=== PATIENT | female | born 1955 | race Caucasian/White ===

== ENCOUNTER → 2016-06-08 | Day surgery (SDC) | payer MEDICARE ==
[~2016-06-08] MED LIST: ALFU1TAB10 PO; ASCO500C PO; ASPI325T PO; B-COTAB35 PO; BACL10TA PO; BENZ100 PO; BUSP10 PO; CALCTAB80 PO; CARB200 PO; DIOV80TA4 PO; DIPH25 PO; DOCU1CAP PO; DOCU1CAP39 PO; FENO160T2 PO; FLUC100T41 PO; GLIP5 PO; HYDR-3133 PO; LANTUS2P SC; LORA1TAB PO; MAGN400C2 PO; MECAP PO; METO10TA PO; MUCI600T PO; NEBI5 PO; NOVOINJ3 SQ; NOVOLOGP2 SQ; OMEG100010 PO; OMEP20TA PO; OXYC1TAB PO; PAXI40TA PO; POLY119S PO; PRED5TAB PO; PROPOFOL 200 MG/20 ML AMP IV ONE; ROSU40 PO; SODIUM CHLORIDE 0.9% INJ 10 ML ONE; TAB-TAB PO; TRAZ100 PO; TRIAMCINOLONE ACETONIDE 40 MG/ML VIAL ONE; VENTAER INH
== END | disposition home or self-care (01) ==
LOC: ESDC 06:22
PROVIDERS: ATTEND Anesthesiology Pain Medicine
DX: M96.1 Postlaminectomy syndrome, not elsewhere classified (principal); E11.9 Type 2 diabetes mellitus without complications; Z79.4 Long term (current) use of insulin
CPT/HCPCS: 62323; 82948; J3301

== ENCOUNTER → 2016-11-13 | Day surgery (SDC) | payer MEDICARE ==
[~2016-11-13] MED LIST changes: +ALFU10TA2 PO; -ALFU1TAB10 PO; -ASCO500C PO; +ASCO500T PO; -B-COTAB35 PO; +BENA25CA4 PO; +BUME1TAB PO; -BUSP10 PO; +BUSP10TA PO; +BYST5TAB2 PO; +CALC500T43 PO; -CALCTAB80 PO; -CARB200 PO; +CLOTR1%T TOPICAL; +COLA100C PO; +CREON24 PO; +DIFL100T PO; +DIOV160T6 PO; -DIOV80TA4 PO; -DIPH25 PO; +DIPH25CA PO; -DOCU1CAP PO; -DOCU1CAP39 PO; +DOCU250C PO; +DOXY1CAP91 PO; +FENO160T PO; -FENO160T2 PO; +FISH100020 PO; -FLUC100T41 PO; -GLIP5 PO; +GLIP5TAB8 PO; +GNPTAB PO; +GUAI600T11 PO; +L-ME1CAP2 PO; -LANTUS2P SC; +LANTUS2P SQ; +LIDOCAINE HCL 1% PF 30 ML VIAL EPIDURAL ONE; -LORA1TAB PO; +LORA1TAB12 PO; -MAGN400C2 PO; +MAGN400T2 PO; +METF500T PO; +MIRA3350 PO; +MUCI30TA2 PO; -MUCI600T PO; +MULTTAB67 PO; -NEBI5 PO; -NOVOLOGP2 SQ; -OMEG100010 PO; +OMEP20CA2 PO; -OMEP20TA PO; +OXYC-396 PO; +OXYC-428 PO; +OXYC1CAP PO; -OXYC1TAB PO; -PAXI40TA PO; +PAXI40TA8 PO; -POLY119S PO; +POTA10CA PO; +PROM12.54 PO; +SERT-129 PO; +SODIUM CHLORIDE 0.9% 10 ML VIAL ONE; -SODIUM CHLORIDE 0.9% INJ 10 ML ONE; -TAB-TAB PO; +TEGR200T PO; -TRAZ100 PO; +TRAZ100T6 PO; +TRIAMCINOLONE ACETONIDE 40 MG/ML VIAL NERV BLOCK ONE; -TRIAMCINOLONE ACETONIDE 40 MG/ML VIAL ONE
--- NOTE | 2016-11-14 23:10 | M6 ---
cc: DAKOTAH FELIZ M.D. DATE: 11/13/2016 DATE OF : 1955 PROCEDURE Fluoroscopically guided right L4-5 transforaminal epidural steroid injection. History and physical was completed and signed. Consent was signed. Procedure site was marked. Medications were listed and reconciled. Pain score was recorded. Allergies were noted. Time out was taken. Fluoroscopy time was recorded where applicable. Sedation was administered or directed by Dr. Feliz. The patient was given oxygen. The patient was monitored by a registered nurse. Total procedure time was greater than 15 minutes. PROCEDURE NOTE: An IV was started, blood pressure cuff, pulse oximeter and EKG were applied. The patient was placed in the prone position on a Jevon table, sedated with small amounts of Versed and propofol titrated to effect. Vital signs were monitored and remained stable throughout the procedure. The patient remained responsive throughout the procedure. The lumbar area was scrubbed with antimicrobial solution, prepped with 10% Betadine solution, and draped with sterile drapes. Fluoroscopy was used in both the AP and lateral projections to clearly visualize the right L4-L5 neural foramen. Then separate sterile 22 gauge, 3-1/2 inch Chiba needles were advanced under fluoroscopic guidance into the dorsal-most aspect of each foramen. There was negative aspiration for blood or CSF. There were no reported paresthesias by the patient. There was no washout of 2 mL of Omnipaque. Then after waiting approximately 60 seconds, the patient was slowly given 3 mL of 1% Xylocaine, 3 mL of normal saline and 40 milligrams of Kenalog at each location. Following this, the patient was taken to the recovery room with stable vital signs, neurologically intact. W. MD HENRIK Little/CURLY /9:12 AM /10:57 PM
== END | disposition home or self-care (01) ==
LOC: PHSDC 07:04
PROVIDERS: ATTEND Pain Medicine Interventional Pain Medicine
DX: M54.5 Low back pain (principal); M79.661 Pain in right lower leg
CPT/HCPCS: 64483; 99152; J3301

== ENCOUNTER → 2016-11-21 | Day surgery (SDC) | payer MEDICARE ==
[~2016-11-21] MED LIST changes: -BACL10TA PO; +BUPIVACAINE HCL PF 0.75% 30 ML VIAL ONE; -BUSP10TA PO; -FENO160T PO; -GLIP5TAB8 PO; -GUAI600T11 PO; -LIDOCAINE HCL 1% PF 30 ML VIAL EPIDURAL ONE; -LORA1TAB12 PO; -MECAP PO; -OXYC-428 PO; -PAXI40TA8 PO; -PRED5TAB PO; -SODIUM CHLORIDE 0.9% 10 ML VIAL ONE; +TRIAMCINOLONE ACETONIDE 40 MG/ML VIAL I-ARTICULR ONE; -TRIAMCINOLONE ACETONIDE 40 MG/ML VIAL NERV BLOCK ONE
--- NOTE | 2016-11-24 16:06 | M6 ---
cc: DAKOTAH FELIZ M.D. DATE: 11/21/2016. DATE OF : 1955. PROCEDURE PERFORMED: Fluoroscopically guided injection bilateral lumbar facet joints (bilateral L3-4, L4-5 and L5-S1 facet joints). DESCRIPTION OF THE PROCEDURE IN DETAIL: History and physical was completed and signed. Consent was signed. Procedure site was marked. Medications were listed and reconciled. Pain score was recorded. Allergies were noted. Time out was taken. Fluoroscopy time was recorded where applicable. Sedation was administered or directed by Dr. Feliz. The patient was given oxygen. The patient was monitored by a registered nurse. Total procedure time was greater than 15 minutes. IV was started, blood pressure cuff, pulse oximeter and EKG were applied. The patient was placed in the prone position on a Jevon table and sedated with small amounts of propofol titrated to effect. Vital signs were monitored and remained stable throughout the procedure. The lumbar area was prepped with alcohol and 10% Betadine solution and draped with sterile drapes. Fluoroscopy was used in a Wenceslao dog view to clearly visualize the bilateral lumbar facet joints at L3-4, L4-5 and L5-S1. Separate sterile 3-1/2-inch 25-gauge spinal needles were advanced into these joints under fluoroscopic guidance. There was negative aspiration for blood or any other type of fluid and at each location, the patient was given 1 mL of Marcaine 0.75% which contained 10 mg of Kenalog. Following the procedure, the patient was taken to the recovery room with stable vital signs neurologically intact. She will be evaluated immediately and with followup to determine if she has a subjective decrease her usual pain and a corresponding objective increase her functional capabilities. WMD HENRIK Cunningham/MELLY /8:30 AM /4:03 PM
== END | disposition home or self-care (01) ==
LOC: PHSDC 06:35
PROVIDERS: ATTEND Pain Medicine Interventional Pain Medicine
DX: M54.5 Low back pain (principal); M79.661 Pain in right lower leg
CPT/HCPCS: 64493; 64494; 64495; 99152; J3301

== ENCOUNTER → 2016-11-28 | Day surgery (SDC) | payer MEDICARE ==
[~2016-11-28] MED LIST changes: +BUPIVACAINE HCL PF 0.5% 30 ML VIAL ONE; -BUPIVACAINE HCL PF 0.75% 30 ML VIAL ONE; +IBUP-232 PO; +METF500T4 PO; +VALS1TAB64 PO; +methylPREDNISolone ACETATE 40 MG/ML VIAL I-ARTICULR ONE
--- NOTE | 2016-11-30 08:05 | M6 ---
cc: DAKOTAH FELIZ M.D. DATE: 11/28/2016 1955 PROCEDURE Fluoroscopically guided injection bilateral sacroiliac joints. History and physical was completed and signed. Consent was signed. Procedure site was marked. Medications were listed and reconciled. Pain score was recorded. Allergies were noted. Time out was taken. Fluoroscopy time was recorded where applicable. Sedation was administered or directed by Dr. Feliz. The patient was given oxygen. The patient was monitored by a registered nurse. Total procedure time was greater than 15 minutes. IV was started, blood pressure cuff, pulse oximeter and EKG were applied. The patient was placed in the prone position on a Jevon table, sedated with small amounts of propofol titrated to effect. Vital signs were monitored and remained stable throughout the procedure. The lumbar area was prepped with alcohol and 10% Betadine solution and draped with sterile drapes. Fluoroscopy was used shooting from medial to lateral to clearly visualize the posterior joint line of the bilateral sacroiliac joints. Separate sterile 5-inch 22-gauge spinal needles were advanced using fluoroscopic guidance into each sacroiliac joint. There was negative aspiration for blood or any other type of fluid and the patient was given 2 mL of 0.5% Marcaine, 20 mg of Depo-Medrol, 20 mg of Kenalog into each joint. Following this the patient was taken to the recovery room with stable vital signs, neurologically intact. She will be evaluated immediately and with followup to determine if she has a subjective decrease in her usual pain and a corresponding objective increase in her functional capabilities. W. MD HENRIK Little/VANESSA /8:57 AM /7:54 AM
== END | disposition home or self-care (01) ==
LOC: PHSDC 06:34
PROVIDERS: ATTEND Pain Medicine Interventional Pain Medicine
DX: M51.37 Other intervertebral disc degeneration, lumbosacral region (principal); M53.3 Sacrococcygeal disorders, not elsewhere classified
CPT/HCPCS: 99152; G0260; J1030; J3301; 27096

== ENCOUNTER → 2016-12-07 | Day surgery (SDC) | payer MEDICARE ==
--- NOTE | 2016-12-11 14:50 | M6 ---
cc: LIU RIVAS,TERESITA PUGH M.D., M.D. DATE: 12/07/2016 DATE OF : 1955 PROCEDURE Fluoroscopically guided injection bilateral lumbar facet joints (bilateral L3-4, L4-5 and L5-S1). PREPROCEDURE NOTE Ms. Bailey is status post lumbar surgery with chronic low back pain and lower extremity radicular symptoms. She is a diabetic and has trouble controlling her blood sugar so we are looking for ways to control her back pain without the use of steroids. On 11/21/2016 we injected her bilateral lumbar facet joints with local anesthetic and a small amount of steroid. The patient reported five days of being pain-free regarding her back pain. So today we are simply repeating that procedure and if on a second occasion the patient obtains excellent relief of her usual back pain then there are long-term treatment options such as neurolytic procedures which could provide her relief without the use of steroids. PROCEDURE NOTE History and physical was completed and signed. Consent was signed. Procedure site was marked. Medications were listed and reconciled. Pain score was recorded. Allergies were noted. Timeout was taken. Fluoroscopy time was recorded where applicable. Sedation was administered or directed by Dr. Feliz. The patient was given oxygen. The patient was monitored by a registered nurse. Total procedure time was greater than 15 minutes. An IV was started, blood pressure cuff, pulse oximeter and EKG were applied. The patient was placed in the prone position on a Jevon table, sedated with small amounts of propofol titrated to effect. Vital signs were monitored and remained stable throughout the procedure. The lumbar and sacral area was prepped with alcohol and 10% Betadine solution, draped with sterile drapes. Fluoroscopy was used shooting from medial to lateral to clearly visualize the posterior joint line of the bilateral sacroiliac joints. Separate sterile 5-inch, 22-gauge spinal needles were advanced into each joint under fluoroscopic guidance. There was negative aspiration for blood or any other type of fluid and at each location the patient was given 2 mL of 0.5% Marcaine, 20 mg of Depo-Medrol, 20 mg of Kenalog. Following the procedure the patient was taken to the recovery room with stable vital signs, neurologically intact. W. MD ERIC Little /8:46 AM /2:40 PM
== END | disposition home or self-care (01) ==
LOC: PHSDC 06:47
PROVIDERS: ATTEND Pain Medicine Interventional Pain Medicine
DX: M54.5 Low back pain (principal); M79.661 Pain in right lower leg
CPT/HCPCS: 99152; G0260; J1030; J3301; 27096

== ENCOUNTER → 2017-01-02 | Day surgery (SDC) | payer MEDICARE ==
[~2017-01-02] MED LIST changes: -BENA25CA4 PO; -BUPIVACAINE HCL PF 0.5% 30 ML VIAL ONE; -DIFL100T PO; -DOXY1CAP91 PO; +SODIUM CHLORIDE 0.9% 10 ML VIAL ONE; -TRIAMCINOLONE ACETONIDE 40 MG/ML VIAL I-ARTICULR ONE; -methylPREDNISolone ACETATE 40 MG/ML VIAL I-ARTICULR ONE
--- NOTE | 2017-01-04 09:27 | M6 ---
cc: DAKOTAH FELIZ M.D. DATE: 01/02/2017 DATE OF : 1955 PROCEDURE Fluoroscopically guided injection neurolytic substance bilateral sacroiliac joints (3% phenol). History and physical was completed and signed. Consent was signed. Procedure site was marked. Medications were listed and reconciled. Pain score was recorded. Allergies were noted. Time out was taken. Fluoroscopy time was recorded where applicable. Sedation was administered or directed by Dr. Feliz. The patient was given oxygen. The patient was monitored by a registered nurse. Total procedure time was greater than 15 minutes. IV was started, blood pressure cuff, pulse oximeter and EKG were applied. The patient was placed in the prone position on a Jevon table sedated with small amounts of propofol titrated to effect. Vital signs were monitored and remained stable throughout the procedure log sacral area was prepped with alcohol and 10% Betadine solution and draped with sterile drapes. Fluoroscopy was used shooting from medial to lateral to clearly visualize the posterior joint line of the bilateral sacroiliac joint. Separate sterile 5-inch 22-gauge spinal needles were advanced into these joints under fluoroscopic guidance. There was negative aspiration for blood or any other type of fluid at each location the patient was given 1/2 mL of 3% phenol. Following this the patient was taken to the recovery room with stable vital signs neurologically intact. She will be evaluated immediately and with followup to determine if she has a subjective decrease in the usual pain and a corresponding objective increase her functional capabilities. W. MD HENRIK Little/leigh /9:56 AM /9:18 AM
== END | disposition home or self-care (01) ==
LOC: PHSDC 07:52
PROVIDERS: ATTEND Pain Medicine Interventional Pain Medicine
DX: G89.29 Other chronic pain (principal); M54.5 Low back pain
CPT/HCPCS: 64640; 99152

== ENCOUNTER → 2017-01-09 | Day surgery (SDC) | payer MEDICARE ==
[~2017-01-09] MED LIST changes: -CLOTR1%T TOPICAL; -DIOV160T6 PO; -METF500T PO
--- NOTE | 2017-01-09 12:18 | M6 ---
cc: Brooks FELIZ DATE 01/09/2017 DATE OF 1955 PROCEDURE Fluoroscopically guided injection neurolytic substance bilateral sacroiliac joints (3% phenol). PROCEDURE NOTE History and physical was completed and signed. Consent was signed. Procedure site was marked. Medications were listed and reconciled. Pain score was recorded. Allergies were noted. Time out was taken. Fluoroscopy time was recorded where applicable. Sedation was administered or directed by Dr. Feliz. The patient was given oxygen. The patient was monitored by a registered nurse. Total procedure time was greater than 15 minutes. IV was started, blood pressure cuff, pulse oximeter and EKG were applied. The patient was placed in the prone position on a Jevon table, sedated with small amounts of propofol titrated to effect. Vital signs were monitored and remained stable throughout the procedure. Sacral area was prepped with alcohol and 10% Betadine solution and draped with sterile drapes. Fluoroscopy was used shooting from medial to lateral to clearly visualize the posterior joint line of the bilateral sacroiliac joint. Separate sterile 5-inch 22-gauge spinal needles were advanced into each joint under fluoroscopic guidance. There was negative aspiration for blood or any other type of fluid. At each location, the patient was given 1-1/2 mL of 3% phenol. Following this, the patient was taken to the recovery room with stable vital signs neurologically intact. She will be evaluated immediately and with followup to determine if she has a subjective decrease in her usual pain and a corresponding objective increase her functional capabilities MD HENRIK Hector/SANDY /10:00 AM /12:10 PM
== END | disposition home or self-care (01) ==
LOC: PHSDC 07:53
PROVIDERS: ATTEND Pain Medicine Interventional Pain Medicine
DX: G89.29 Other chronic pain (principal); M54.5 Low back pain
CPT/HCPCS: 64640; 99152

== ENCOUNTER → 2017-01-23 | Day surgery (SDC) | payer MEDICARE ==
[~2017-01-23] MED LIST changes: +LIDOCAINE HCL 1% PF 30 ML VIAL EPIDURAL ONE; -MIRA3350 PO; +TRIAMCINOLONE ACETONIDE 40 MG/ML VIAL NERV BLOCK ONE
--- NOTE | 2017-01-23 11:05 | M6 ---
cc: DAKOTAH FELIZ M.D. DATE 01/23/2017 DATE OF 1955. PROCEDURE Fluoroscopically guided right S1 transforaminal epidural steroid injection. History and physical was completed and signed. Consent was signed. Procedure site was marked. Medications were listed and reconciled. Pain score was recorded. Allergies were noted. Time out was taken. Fluoroscopy time was recorded where applicable. Sedation was administered or directed by Dr. Feliz. The patient was given oxygen. The patient was monitored by a registered nurse. Total procedure time was greater than 15 minutes. PROCEDURE NOTE An IV was started, blood pressure cuff, pulse oximeter and EKG were applied. The patient was placed in the prone position on a Jevon table, sedated with small amounts of Versed and propofol titrated to effect. Vital signs were monitored and remained stable throughout the procedure. The patient remained responsive throughout the procedure. The lumbar area was scrubbed with antimicrobial solution, prepped with 10% Betadine solution, and draped with sterile drapes. Fluoroscopy was used in both the AP and lateral projections to clearly visualize the right S1 neural foramen. Then separate sterile 22 gauge, 3 1/2-inch Chiba needles were advanced under fluoroscopic guidance into the dorsal-most aspect of each foramen. There was negative aspiration for blood or CSF. There were no reported paresthesias by the patient. There was no washout of 2 mL of Omnipaque. Then after waiting approximately 60 seconds, the patient was slowly given 12 mL of 0.5% Xylocaine and 60 mg of Kenalog at that location. Following this, the patient was taken to the recovery room with stable vital signs, neurologically intact. WVioleta Feliz MD WRM/BATSHEVA /10:43 AM /10:58 AM
== END | disposition home or self-care (01) ==
LOC: PHSDC 07:40
PROVIDERS: ATTEND Pain Medicine Interventional Pain Medicine
DX: M54.5 Low back pain (principal); M79.604 Pain in right leg; I10 Essential (primary) hypertension; J44.9 Chronic obstructive pulmonary disease, unspecified; E78.00 Pure hypercholesterolemia, unspecified; E11.43 Type 2 diabetes mellitus with diabetic autonomic (poly)neuropathy; K31.84 Gastroparesis; K21.9 Gastro-esophageal reflux disease without esophagitis; E07.9 Disorder of thyroid, unspecified; H40.9 Unspecified glaucoma; R56.9 Unspecified convulsions; Z79.4 Long term (current) use of insulin
CPT/HCPCS: 64483; 99152; J3010; J3301

== ENCOUNTER → 2017-07-24 | Day surgery (SDC) | payer MEDICARE ==
[~2017-07-24] MED LIST changes: +ASPI-183 PO; -ASPI325T PO; +ASTE0.15 EACH NARE; +BUPIVACAINE HCL PF 0.5% 30 ML VIAL ONE; +BUTATAB6 PO; -COLA100C PO; +COLA100C5 PO; -DOCU250C PO; +DOCU250C7 PO; +EZET1TAB8 PO; +HUMIBIDDM PO; -LIDOCAINE HCL 1% PF 30 ML VIAL EPIDURAL ONE; +LOPE2CAP PO; -MUCI30TA2 PO; +POLY17S PO; -SODIUM CHLORIDE 0.9% 10 ML VIAL ONE; +TRAZ100T10 PO; -TRAZ100T6 PO; +methylPREDNISolone ACETATE 40 MG/ML VIAL I-ARTICULR ONE
--- NOTE | 2017-07-24 09:20 | M6 ---
cc: Brooks Feliz MD DATE: 07/24/2017 PROCEDURE: Fluoroscopically guided injection bilateral sacroiliac joints. PROCEDURE NOTE: History and physical was completed and signed. Consent was signed. Procedure site was marked. Medications were listed and reconciled. Pain score was recorded. Allergies were noted. Time out was taken. Fluoroscopy time was recorded where applicable. Sedation was administered or directed by Dr. Feliz. The patient was given oxygen. The patient was monitored by a registered nurse. Total procedure time was greater than 15 minutes. IV was started. Blood pressure cuff, pulse oximeter and EKG were applied. The patient was placed in the prone position on a Jevon table, sedated with small amounts of Propofol titrated to effect. Vital signs were monitored and remained stable throughout the procedure. The sacral area was prepped with alcohol and 10% Betadine solution and draped with sterile drapes. Fluoroscopy was used shooting from medial to lateral to clearly visualize the posterior joint line of the bilateral sacroiliac joint. Separate sterile 5 inch, 22-gauge spinal needles were advanced into these joints under fluoroscopic guidance. There was negative aspiration for blood or any other type of fluid and at each location, the patient was given 2 mL of 0.5% Marcaine, 20 mg Depo-Medrol, 20 mg of Kenalog. Following this, the patient was taken to the recovery room with stable vital signs, neurologically intact. MD RHONDA HectorM/SAMIRA , 09:10 AM , 09:19 AM
== END | disposition home or self-care (01) ==
LOC: PHSDC 06:44
PROVIDERS: ATTEND Pain Medicine Interventional Pain Medicine
DX: M54.5 Low back pain (principal)
CPT/HCPCS: 99152; G0260; J1030; J3301; 27096

== ENCOUNTER → 2017-08-13 | Outpatient (CLI) | payer MEDICARE ==
[~2017-08-13] MED LIST changes: -BUPIVACAINE HCL PF 0.5% 30 ML VIAL ONE; -COLA100C5 PO; -DOCU250C7 PO; -PROPOFOL 200 MG/20 ML AMP IV ONE; -TRIAMCINOLONE ACETONIDE 40 MG/ML VIAL NERV BLOCK ONE; -methylPREDNISolone ACETATE 40 MG/ML VIAL I-ARTICULR ONE
[2017-08-13 13:06] LABS: AUTOMATED NEUTROPHIL # 6.9 TH/MM3 (1.8-7.7); BASOPHIL # 0.3 TH/MM3 (0-0.2); BASOPHIL % 2.8 % (0.0-2.0); EOSINOPHIL # 0.1 TH/MM3 (0-0.4); EOSINOPHIL % 1.3 % (0.0-4.0); HEMATOCRIT 34.7 % (35.0-46.0); HEMOGLOBIN 12.1 GM/DL (11.6-15.3); LYMPHOCYTE # 2.4 TH/MM3 (1.0-4.8); MEAN CORPUSCULAR HEMOGLOBIN 32.1 PG (27.0-34.0); MEAN CORPUSCULAR HGB CONC 34.9 % (32.0-36.0); MEAN PLATELET VOLUME 6.9 FL (7.0-11.0); MONO % 6.2 % (0.0-8.0); MONOCYTE # 0.6 TH/MM3 (0-0.9); NEUT % 66.7 % (16.0-70.0); PLATELET COUNT 273 TH/MM3 (150-450); RED BLOOD COUNT 3.77 MIL/MM3 (4.00-5.30); RED CELL DISTRIBUTION WIDTH 11.1 % (11.6-17.2); WHITE BLOOD COUNT 10.3 TH/MM3 (4.0-11.0)
[2017-08-13 14:37] LABS: BILIRUBIN, URINE NEG (NEG); BLOOD, URINE NEG (NEG); GLUCOSE,URINE 1000 OR GREATER mg/dL (NEG); KETONE, URINE NEG (NEG); NITRITE,URINE NEG (NEG); URINE COLOR YELLOW (YELLW/STRAW); URINE LEUKOCYTE ESTERASE NEG (NEG)
[2017-08-13 14:51] LABS: RBC, URINE 0-3 /hpf (0-3); SQUAMOUS EPITHELIAL CELL URINE 0-5 /hpf (0-5); WBC, URINE 0-2 /hpf (0-5)
--- NOTE | 2017-08-13 20:17 | EKG ---
Date Performed: 08/13/2017 Time Performed: 13:11:11 PTAGE: 62 years EKG: Sinus rhythm NORMAL ECG PREVIOUS TRACING : 05/04/2008 11.52 Since the previous tracing, no significant change noted DOCTOR: Ottoniel Villanueva Interpretating Date/Time 08/13/2017 20:15:07
== END ==
LOC: PHPRE 12:12
PROVIDERS: ATTEND Pain Medicine Interventional Pain Medicine
DX: Z01.812 Encounter for preprocedural laboratory examination (principal); Z01.810 Encounter for preprocedural cardiovascular examination
CPT/HCPCS: 36415; 81001; 84132; 85025; 93005

== ENCOUNTER → 2017-08-20 | Day surgery (SDC) | payer MEDICARE ==
[~2017-08-20] VITALS: Ht 165.1 cm; Wt 96.0 kg
[~2017-08-20] MED LIST changes: +ACYC200C66 PO; +BUPIVACAINE/EPINEPHRINE 0.5% PF 30 ML VIAL ONE; +CHLORHEXIDINE GLUCONATE 2 % 1 PACK (2 CLOTHS) TOPICAL PRN; +FAMOTIDINE 20 MG/2 ML VIAL ONE; +INSULIN HUMAN REGULAR 1,000 UNITS/10 ML VIAL SQ PRN; +LACTATED RINGER'S 1000 ML IV PRN; +LIDOCAINE 1%/EPINEPHrine 1:100,000 SOLN 30 ML VIAL ONE; +METOCLOPRAMIDE HCL 10 MG/2 ML VIAL ONE; +METOPROLOL TARTRATE 25 MG TAB ONE; +METOPROLOL TARTRATE 25 MG TAB PO PRN; +ONDANSETRON HCL 4 MG/2 ML VIAL ONE; +PROPOFOL 200 MG/20 ML AMP ONE; +SODIUM CHLOR 0.9% 250 ML INJ 250 ML ONE; +SODIUM CHLORID 0.9% 500 ML IV PRN; +SODIUM CHLORIDE 0.9% 20 ML VIAL IV ONE; +SODIUM CHLORIDE 0.9% 20 ML VIAL ONE; +UMEC1AER INH; +VANCOMYCIN 500 MG VIAL ONE; +VANCOMYCIN 500 MG/NS 100 ML IV SCH
[2017-08-20 13:30] VITALS: PULSE 74; TEMP 98.3
[2017-08-20 14:30] VITALS: BP 131/65; PULSE 70; RESP 16; O2SAT 96
--- NOTE | 2017-08-20 15:10 | RADRPT ---
EXAM DATE/TIME: 08/20/2017 12:35 [facility] COMPARISON: No previous studies available for comparison. INDICATIONS : Trial Stimulator in [place] MEDICAL HISTORY : None. SURGICAL HISTORY : None. ENCOUNTER: Initial ACUITY: 1 day PAIN SCORE: Non-responsive. LOCATION: Thoracic spine FINDINGS: Spinal stimulator at T9. CONCLUSION: Stimulator as above. Jorge Mast MD FACR on August 20, 2017 at 15:07 Board Certified Radiologist. This report was verified electronically.
--- NOTE | 2017-08-29 16:34 | MP ---
cc: Brooks Feliz MD DATE OF OPERATION: 08/20/2017 DATE OF : 1955 PROCEDURE: 1. Implantation of [employer]tron[employer] spinal cord stimulating electrodes (Quad electrodes x2). 2. Implantation of [employer] peripheral nerve stimulating electrodes (Quad electrodes x2). PREPROCEDURE DIAGNOSIS: Failed back syndrome with intractable pain. POSTPROCEDURE DIAGNOSIS: Failed back syndrome with intractable pain. PROCEDURE NOTE: IV was started in the holding area. The patient was given IV antibiotics, taken to the operating room and placed in the prone position, sedated and monitored by Anesthesia. All pressure points were checked and padded and sequential stockings were activated. The patient's lumbar area was prepped with ChloraPrep and draped with sterile drapes. Then, fluoroscopy was used to visualize the T12-L1 level. The skin was infiltrated with 1% lidocaine containing epinephrine and an incision was made. Then modified Tuohy needles from the [employer] kit were advanced into the epidural space, both on the right and the left using fluoroscopic guidance and the loss of resistance technique. Then, Medtronics Quad electrodes were placed through the needles and advanced up to the T9 and T10 level at which point the patient was awakened and stimulation took place which covered the lower extremity pain and buttocks pain that the patient was having. The patient then was re-sedated and 2 [employer]tronics Quad electrodes were placed subcutaneously over the anatomical location of the cluneal nerves using a tunneling device. Both the spinal cord leads and the peripheral leads were anchored to the underlying fascia using a Silastic anchor circumferentially tied with two 2-0 Ethibond sutures. Fluoroscopy was used to confirm the leads were not moved during the anchoring process. Then, the skin on the left flank was infiltrated with local anesthetic. An incision was made and a subcutaneous pocket was created. A tunneling device was used then to tunnel the peripheral stimulating leads and the spinal cord leads over to the left flank incision where they were connected to distal extension wires by tightening Luis Enrique screws and covering the connection with a Silastic cover, secured at both ends with 2-0 Ethibond suture. Then, a final tunnel was made to pass the distal extension wires from the left flank incision further lateral to exit the patient's left flank skin. Impedance was checked at the bedside and found to be appropriate in all the electrodes. The left flank incision and lumbar incision were irrigated with Betadine. Closure took place with 3-0 Monocryl in the subcuticular tissue and 3-0 nylon on the skin. The incisions were covered with sterile adhesive dressings and the patient was taken to the recovery room with stable vital signs. W. MD HENRIK Little/MARCO , 03:53 PM , 04:33 PM
== END | disposition home or self-care (01) ==
LOC: PHSDC 09:12
PROVIDERS: ATTEND Pain Medicine Interventional Pain Medicine
DX: M96.1 Postlaminectomy syndrome, not elsewhere classified (principal); M79.604 Pain in right leg; M79.605 Pain in left leg; I10 Essential (primary) hypertension; E11.9 Type 2 diabetes mellitus without complications; Z79.4 Long term (current) use of insulin
CPT/HCPCS: 01936; 63650; 64575; 72020; 76000; C1778; J2405; J2765; J3370; J7050; J7120

== ENCOUNTER → 2017-08-30 | Day surgery (SDC) | payer MEDICARE ==
[~2017-08-30] VITALS: Ht 165.1 cm; Wt 96.5 kg
[~2017-08-30] MED LIST changes: +BUPIVACAINE/EPINEPHRINE 0.25% PF 30 ML VIAL ONE; -BUPIVACAINE/EPINEPHRINE 0.5% PF 30 ML VIAL ONE; +CHLORHEXIDINE GLUCONATE 2 % 1 PACK (2 CLOTHS) TOPICAL ONE; -CHLORHEXIDINE GLUCONATE 2 % 1 PACK (2 CLOTHS) TOPICAL PRN; -FAMOTIDINE 20 MG/2 ML VIAL ONE; +HYDROmorphone HCL PF 0.5 MG/0.5 ML SYRINGE ONE; +INSULIN HUMAN REGULAR 1,000 UNITS/10 ML VIAL SQ ONE; -INSULIN HUMAN REGULAR 1,000 UNITS/10 ML VIAL SQ PRN; -LIDOCAINE 1%/EPINEPHrine 1:100,000 SOLN 30 ML VIAL ONE; -METOCLOPRAMIDE HCL 10 MG/2 ML VIAL ONE; -METOPROLOL TARTRATE 25 MG TAB ONE; +MIDAZOLAM HCL 2 MG/2 ML VIAL ONE; -ONDANSETRON HCL 4 MG/2 ML VIAL ONE; +ONDANSETRON ODT 4 MG TAB ONE; +POVIDONE IODINE 5% (ANTISEPSIS KIT) 4 APPLICATIONS TOPICAL ONE; -PROPOFOL 200 MG/20 ML AMP ONE; -SODIUM CHLOR 0.9% 250 ML INJ 250 ML ONE; -SODIUM CHLORIDE 0.9% 20 ML VIAL IV ONE; -SODIUM CHLORIDE 0.9% 20 ML VIAL ONE; -VANCOMYCIN 500 MG VIAL ONE; -VANCOMYCIN 500 MG/NS 100 ML IV SCH
--- NOTE | 2017-08-30 13:12 | MP ---
cc: Brooks Feliz MD DATE OF OPERATION: 08/30/2017 PROCEDURE PERFORMED: Implantation of [employer]tron[employer] dual channel rechargeable pulse generator for spinal cord stimulation. PREPROCEDURE DIAGNOSIS: Failed back syndrome with intractable pain. POSTPROCEDURE DIAGNOSIS: Failed back syndrome with intractable pain. DESCRIPTION OF PROCEDURE: An IV was started in the holding area. Surgical consent forms were signed. The surgical site was marked. The patient was taken to the operating room, given general LMA anesthesia, then placed in the right lateral decubitus position. All pressure points were checked and padded. Then, the distal extension wires in her left flank were prepped with alcohol and cut with sterile scissors. Then, the lumbar area and abdominal area were prepped with ChloraPrep and then she was draped with sterile drapes. Then, the lumbar incision was reopened by cutting the sutures. The stimulating electrodes and the distal extension wires were exteriorized. The distal extension wires were disconnected from the stimulating leads by loosening Luis Enrique screws. Then, an incision was made in the left subcostal area and a subcutaneous pocket was created. Then, distal extension wires were tunneled subcutaneously from the abdominal incision to the lumbar incision. There they were connected to the stimulating leads by tightening Luis Enrique screws and then covering the connection with a Silastic cover secured at both ends with 2-0 Ethibond suture. Then, the distal extension wires were connected to the [employer] dual channel rechargeable pulse generator by tightening Luis Nerique screws. Then, impedance was checked and found to be appropriate throughout the entire system. Then the pulse generator was placed in the subcutaneous pocket and anchored to the underlying fascia using two 2-0 Ethibond sutures. Then, each incision was irrigated with Betadine and each incision was closed with 3-0 Monocryl in a subcuticular tissue and 3-0 nylon on the skin. The incisions were covered with sterile adhesive dressings and the patient was taken to the recovery room with stable vital signs, neurologically intact. MD HENRIK Hector/BLUE , 12:57 PM , 01:12 PM
[2017-08-30 14:40] VITALS: BP 134/78; PULSE 76; RESP 16; TEMP 98.2; O2SAT 98
== END | disposition home or self-care (01) ==
LOC: PHSDC 09:05
PROVIDERS: ATTEND Pain Medicine Interventional Pain Medicine
DX: M96.1 Postlaminectomy syndrome, not elsewhere classified (principal); E11.9 Type 2 diabetes mellitus without complications; E03.9 Hypothyroidism, unspecified; Z86.73 Personal history of transient ischemic attack (TIA), and cerebral infarction without residual deficits
CPT/HCPCS: 00300; 63685; 82948; C1820; J1170; J1815; J2250; J7120